=== PATIENT | female | born 1940 | race Asian ===

== ENCOUNTER 2020-05-17 05:55 | Day surgery (SDC) | payer OTHER, SELFPAY ==
[~2020-05-17] VITALS: Ht 142.2 cm; Wt 49.9 kg
[2020-05-17] MEDS ORDERED: LIDOCAINE 1% 500 MG/50 ML VIAL ONE (07:03)
[2020-05-17] MEDS ORDERED: GELATIN SPONGE 100 1 SPG TP ONE (07:03)
[2020-05-17] MEDS ORDERED: BUPIVACAINE-MPF 0.25% 30 ML VIAL INJ ONE (07:03)
[2020-05-17] MEDS ORDERED: ESMOLOL 100 MG/10 ML VIAL IV ONE (07:44)
[2020-05-17] MEDS ORDERED: NEOSTIGMINE 1:1000 10 MG/10 ML VIAL ONE (07:44)
[2020-05-17] MEDS ORDERED: ROCURONIUM 50 MG/5 ML VIAL IV ONE (07:44)
[2020-05-17] MEDS ORDERED: SUCCINYLCHOLINE CHLORIDE 200 MG/10 ML VIAL IVP ONE (07:44)
[2020-05-17] MEDS ORDERED: ONDANSETRON 4 MG/2 ML VIAL ONE (07:44)
[2020-05-17] MEDS ORDERED: SEVOFLURANE 250 ML BTL INH ONE (07:44)
[2020-05-17] MEDS ORDERED: hydrALAZINE 20 MG/ML VIAL ONE (07:44)
[2020-05-17] MEDS ORDERED: fentaNYL citrate 0.05 MG/ML VIAL ONE (07:44)
[2020-05-17] MEDS ORDERED: ETOMIDATE 20 MG/10 ML VIAL IVP ONE (07:44)
[2020-05-17] MEDS ORDERED: LIDOCAINE 2% 100 MG/5 ML SYR IVP ONE (07:44)
[2020-05-17] MEDS ORDERED: DEXAMETHASONE 4 MG/ML VIAL ONE (07:44)
[2020-05-17] MEDS ORDERED: KETOROLAC 30 MG/ML VIAL ONE (07:44)
[2020-05-17] MEDS ORDERED: LACTATED RINGERS 1,000 ML IV SCH (08:22)
[2020-05-17] MEDS ORDERED: ONDANSETRON 4 MG/2 ML VIAL IVP PRN (08:25)
[2020-05-17] MEDS ORDERED: fentaNYL citrate 0.05 MG/ML VIAL IVP PRN (08:25)
[2020-05-17] MEDS ORDERED: MEPERIDINE 25 MG/ML SYR IVP PRN (08:25)
[2020-05-17] MEDS ORDERED: diphenhydrAMINE 50 MG/ML VIAL IVP PRN (08:25)
== END 2020-05-17 14:40 | disposition home or self-care (01) ==
LOC: MDS 05:55 → MMU 05:56 → MDS 14:40
PROVIDERS: ATTEND Surgery
DX: K64.3 Fourth degree hemorrhoids (principal); Z20.828 Contact with and (suspected) exposure to other viral communicable diseases; I10 Essential (primary) hypertension
CPT/HCPCS: 46260; 71045; 88304; 93005; J0330; J0360; J1100; J1885; J2001; J2175; J2405; J2710; J3010; J3490; J7120; Q0092; U0003

== ENCOUNTER 2020-05-30 17:34 | Emergency (ER) | payer OTHER, SELFPAY ==
[~2020-05-30] VITALS: Ht 142.2 cm; Wt 49.9 kg
[2020-05-30 17:41] VITALS: BP 155/78
--- NOTE | 2020-05-30 17:45 | NUR ---
to ED bed 11
--- NOTE | 2020-05-30 17:46 | NUR ---
[place], pt daughter will be in lobby to help translate.
--- NOTE | 2020-05-30 17:56 | NUR ---
MD at bedside with pt daughter translating due to language barrier.
--- NOTE | 2020-05-30 18:03 | NUR ---
79 y/o female c/o small yellow-jahaira colored vaginal dischargex x1week. Dysuria and vaginal discomfort. Pt daughter translates for the pt and states, "feels like something is stuck up there and wants to come out". PMH: HTN. SX: Hemorroidectomy [id number] on 05/17/20.
--- NOTE | 2020-05-30 18:12 | NUR ---
Female [employer] Supervisor accompanied female patient for Vaginal Exam.
[2020-05-30 18:37] VITALS: BP 155/78
--- NOTE | 2020-05-30 18:38 | NUR ---
Patient discharged with v/s stable. Written and verbal after care instructions given and explained. Patient alert, oriented and verbalized understanding of instructions. Ambulatory with steady gait. All questions addressed prior to discharge. ID band removed. Patient advised to follow up with PMD.Opportunity to ask questions provided and answered.
== END 2020-05-30 18:38 | disposition home or self-care (01) ==
LOC: MED 17:34
DX: N90.7 Vulvar cyst (principal); I10 Essential (primary) hypertension; K64.8 Other hemorrhoids; Z85.9 Personal history of malignant neoplasm, unspecified; Z90.11 Acquired absence of right breast and nipple
CPT/HCPCS: 81002; 99282